=== PATIENT | male | born 1955 | race Caucasian/White ===

== ENCOUNTER 2020-05-17 22:29 | Inpatient (IN) | payer MEDICARE, OTHER ==
[~2020-05-17] VITALS: Ht 185.4 cm; Wt 103.9 kg
[2020-05-17] MEDS ORDERED: ACETAMINOPHEN ES 500 MG TABLET PO ONE (23:00)
[2020-05-17] MEDS ORDERED: ACETAMINOPHEN ES 500 MG TABLET ONE (23:04)
[2020-05-17] MEDS ORDERED: APIX5TAB4 PO (23:14)
[2020-05-17] MEDS ORDERED: ALBU18HF2 IH (23:14)
[2020-05-17] MEDS ORDERED: SERT25TA PO (23:14)
[2020-05-17] MEDS ORDERED: CLON0.5T4 PO (23:14)
[2020-05-17] MEDS ORDERED: OXYB10TA30 PO (23:14)
[2020-05-17] MEDS ORDERED: APIX5TAB PO (23:14)
[2020-05-17] MEDS ORDERED: CHLO25TA2 PO (23:14)
[2020-05-17] MEDS ORDERED: MULT-1196 PO (23:14)
[2020-05-17] MEDS ORDERED: FLUT1DIS27 IH (23:14)
[2020-05-17] MEDS ORDERED: COGENTIN PO (23:14)
[2020-05-17] MEDS ORDERED: FINA5TAB3 PO (23:14)
[2020-05-17] MEDS ORDERED: AMLO10TA7 PO (23:14)
[2020-05-17] MEDS ORDERED: ZIPR80CA2 PO (23:14)
[2020-05-17] MEDS ORDERED: PHEN-704 PO (23:14)
[2020-05-17] MEDS ORDERED: TAMS-3 PO (23:14)
[2020-05-17] MEDS ORDERED: ATOR20TA PO (23:14)
[2020-05-17] MEDS ORDERED: LISI10TA5 PO (23:14)
--- NOTE | 2020-05-17 23:14 | NUR ---
Pt. admitted to [facility] , under care of Dr. BOOTHE Belongs List completed. MRSA SWAB COLLECTED.
[2020-05-17] MEDS ORDERED: BLOOD SUGAR DIAGNOSTIC 1 EACH STRIP VI ONE (23:30)
[2020-05-17] MEDS ORDERED: MAG HYDROX/AL HYDROX/SIMETH 30 ML LIQUID UDC PO PRN (23:30)
[2020-05-17] MEDS ORDERED: MAGNESIUM HYDROXIDE 30 ML LIQUID UDC PO PRN (23:30)
[2020-05-17] MEDS ORDERED: ACETAMINOPHEN 325 MG TABLET PO PRN (23:30)
[2020-05-17 23:50] VITALS: BP 130/70
[2020-05-18] MEDS: TEMAZEPAM 7.5 MG CAPSULE PO PRN (00:27)
[2020-05-18] MEDS: LORAZEPAM 1 MG TABLET PO PRN (03:18)
[2020-05-18 07:30] VITALS: BP 118/60
[2020-05-18 08:19] LABS: CREATININE 1.1 mg/dL (0.6-1.3); POTASSIUM 2.9 mmol/L (3.5-5.1); TOTAL PROTEIN, SERUM 7.2 g/dL (6.4-8.2)
[2020-05-18] MEDS ORDERED: ZIPRASIDONE 80 MG CAPSULE PO SCH (09:00)
[2020-05-18] MEDS: SERTRALINE HCL 50 MG TABLET PO SCH (09:36)
[2020-05-18] MEDS: POTASSIUM CHLORIDE 20 MEQ TAB.PRT.SR PO SCH ×3 (09:36→12:21)
[2020-05-18] MEDS: LITHIUM CARBONATE 300 MG CAPSULE PO SCH ×2 (09:36→16:54)
[2020-05-18] MEDS: ZIPRASIDONE 20 MG CAPSULE PO SCH ×2 (10:07→20:45)
[2020-05-18] MEDS ORDERED: ALBUTEROL SULFATE 2.5 MG/3 ML NEBU NEB PRN (12:00)
--- NOTE | 2020-05-18 13:19 | NUR ---
BELINDA Initial Discharge Plan: Patient was residing at [facility] [address] [address]. This radio news writer spoke with patient's sister, Karol ([phone]) who stated that the patient has a new residence arranged by [facility] [address] [address]. Patient would like to be discharged to his new independent living. BELINDA will continue to work with patient, family, and MD to ensure a safe and proper discharge plan.
--- NOTE | 2020-05-18 13:19 | NUR ---
BELINDA Family Contact: SW spoke with patient's sister, Karol Cancino ([phone]) regarding patient's treatment and discharge planning.
--- NOTE | 2020-05-18 13:31 | NUR ---
Firearms Report: Machine Room Operator completed and submitted a [employer] firearms report for 5150 grave disability certification. A copy of report has been placed in patient chart.
--- NOTE | 2020-05-18 14:17 | NUR ---
potassium replaced orally, follow up lab tomorrow
[2020-05-18 16:00] VITALS: BP 112/67
[2020-05-18] MEDS: APIXABAN 5 MG TABLET PO SCH (16:58)
[2020-05-18] MEDS ORDERED: FLUTICASONE/SALMETEROL 100/50 1 INH DISK.W.DEV IH SCH (17:00)
--- NOTE | 2020-05-18 18:16 | NUR ---
patient still noted with bizzare behaviour, no combative, no aggressive behaviour noted, compliant with medications, kept safe during shift, denied suicidal thoughts.
[2020-05-18 20:14] VITALS: BP 118/65
[2020-05-18] MEDS: ATORVASTATIN 20 MG TABLET PO SCH (20:45)
[2020-05-18] MEDS: TAMSULOSIN HCL 0.4 MG CAP.SR.24H PO SCH (20:45)
--- NOTE | 2020-05-19 04:38 | NUR ---
Received patient in bed, med compliant, no behavioral issue, patient will remain in a psych facility for further evaluation and treatment. Patient compliant with treatment, good insight and good judgement.
[2020-05-19] MEDS: PANTOPRAZOLE SODIUM 40 MG TABLET.DR PO SCH (06:08)
[2020-05-19 07:52] LABS: CREATININE 0.9 mg/dL (0.6-1.3); POTASSIUM 2.9 mmol/L (3.5-5.1)
[2020-05-19] MEDS ORDERED: POTASSIUM CHLORIDE 20 MEQ POWDER PACKET PO ONE (08:45)
[2020-05-19] MEDS ORDERED: CHLORTHALIDONE 25 MG TABLET PO SCH (09:00)
[2020-05-19] MEDS: OXYBUTYNIN XL 5 MG TABSR PO SCH (09:27)
[2020-05-19] MEDS: LITHIUM CARBONATE 300 MG CAPSULE PO SCH ×2 (09:27→17:05)
[2020-05-19] MEDS: SERTRALINE HCL 50 MG TABLET PO SCH (09:28)
[2020-05-19] MEDS: MULTIVIT, IRON, MIN NO. 8, FA TABLET PO SCH (09:28)
[2020-05-19] MEDS: APIXABAN 5 MG TABLET PO SCH ×2 (09:28→17:06)
[2020-05-19] MEDS: LISINOPRIL 10 MG TABLET PO SCH (09:29)
[2020-05-19] MEDS: AMLODIPINE 10 MG TABLET PO SCH (09:29)
[2020-05-19] MEDS: ZIPRASIDONE 20 MG CAPSULE PO SCH ×2 (09:30→20:13)
[2020-05-19] MEDS: FINASTERIDE 5 MG TABLET PO SCH (09:30)
[2020-05-19] MEDS: FLUTICASONE/VILANTEROL 1 EACH BLST.W.DEV INH SCH (09:30)
--- NOTE | 2020-05-19 10:38 | NUR ---
Received patient in room. Patient AAO x 1, able to express needs but forgetful. NO acute distress noted. Vital signs stable. Patient noted being very paranoid, anxious and restless. Patient also noted getting undressed several times and walking naked on the hallway. Reoriented patient and patient assisted with closing several times. Patient is compliant with medication, cooperative with care. Participates in group therapy as well. Safety measures in place and will continue with care.
--- NOTE | 2020-05-19 10:45 | NUR ---
Patient in activity room doing group therapy. Patient noted getting undressed in front of other patients. Explained to patient needs to put back close on. Patient assisted getting dressed and decided to stay in group. Will continue with care.
[2020-05-19] MEDS: LORAZEPAM 1 MG TABLET PO PRN (12:04)
[2020-05-19 13:38] VITALS: BP 132/72
--- NOTE | 2020-05-19 14:12 | NUR ---
Patient in activity room with SW participating in group therapy.
[2020-05-19 16:00] VITALS: BP 89/59
--- NOTE | 2020-05-19 19:42 | NUR ---
Patient calm and in room at this time, compliant with meds. Patient AAO x 1-2 with forgetfulness noted. Compliant with care, No agitation noted. Participated in group therapy for most of the shift. Safety needs in place and will continue with care.
[2020-05-19] MEDS: TAMSULOSIN HCL 0.4 MG CAP.SR.24H PO SCH (20:12)
[2020-05-19] MEDS: ATORVASTATIN 20 MG TABLET PO SCH (20:13)
[2020-05-19 20:40] VITALS: BP 104/50
[2020-05-20] MEDS: PANTOPRAZOLE SODIUM 40 MG TABLET.DR PO SCH (06:17)
[2020-05-20 07:30] VITALS: BP 106/56
[2020-05-20] MEDS: LISINOPRIL 10 MG TABLET PO SCH (09:28)
[2020-05-20] MEDS: AMLODIPINE 10 MG TABLET PO SCH (09:28)
[2020-05-20] MEDS: MULTIVIT, IRON, MIN NO. 8, FA TABLET PO SCH (09:28)
[2020-05-20] MEDS: LITHIUM CARBONATE 300 MG CAPSULE PO SCH ×2 (09:28→16:34)
[2020-05-20] MEDS: APIXABAN 5 MG TABLET PO SCH ×2 (09:29→16:35)
[2020-05-20] MEDS: FINASTERIDE 5 MG TABLET PO SCH (09:29)
[2020-05-20] MEDS: OXYBUTYNIN XL 5 MG TABSR PO SCH (09:30)
[2020-05-20] MEDS: SERTRALINE HCL 50 MG TABLET PO SCH (09:30)
[2020-05-20] MEDS: ZIPRASIDONE 20 MG CAPSULE PO SCH ×2 (09:30→20:06)
[2020-05-20] MEDS: FLUTICASONE/VILANTEROL 1 EACH BLST.W.DEV INH SCH (09:30)
[2020-05-20 15:54] VITALS: BP 95/48
[2020-05-20 20:00] VITALS: BP 116/60
[2020-05-20] MEDS: TAMSULOSIN HCL 0.4 MG CAP.SR.24H PO SCH (20:06)
[2020-05-20] MEDS: LORAZEPAM 1 MG TABLET PO PRN (20:06)
[2020-05-20] MEDS: ATORVASTATIN 20 MG TABLET PO SCH (20:07)
--- NOTE | 2020-05-21 05:18 | NUR ---
Patient was anxious at the beginning of the shift and was medicated with a PRN med. Patient is still hearing multiple voices all at once and gets frustrated easily. During the night patient was up because he had soiled his bed. After cleaning up the patient he was able to go back to bed for awhile. Continuing to monitor for safety and anxiety. No distress at this time.
[2020-05-21] MEDS: PANTOPRAZOLE SODIUM 40 MG TABLET.DR PO SCH (06:06)
[2020-05-21] MEDS: LORAZEPAM 1 MG TABLET PO PRN (06:48)
[2020-05-21 07:30] VITALS: BP 114/57
[2020-05-21] MEDS: ZIPRASIDONE 20 MG CAPSULE PO SCH ×2 (08:21→20:06)
[2020-05-21] MEDS: OXYBUTYNIN XL 5 MG TABSR PO SCH (08:21)
[2020-05-21] MEDS: AMLODIPINE 10 MG TABLET PO SCH (08:22)
[2020-05-21] MEDS: LISINOPRIL 10 MG TABLET PO SCH (08:22)
[2020-05-21] MEDS: MULTIVIT, IRON, MIN NO. 8, FA TABLET PO SCH (08:23)
[2020-05-21] MEDS: FINASTERIDE 5 MG TABLET PO SCH (08:23)
[2020-05-21] MEDS: LITHIUM CARBONATE 300 MG CAPSULE PO SCH ×2 (08:23→16:55)
[2020-05-21] MEDS: SERTRALINE HCL 50 MG TABLET PO SCH (08:23)
[2020-05-21] MEDS: APIXABAN 5 MG TABLET PO SCH ×2 (08:23→16:56)
[2020-05-21 08:40] LABS: CREATININE 0.9 mg/dL (0.6-1.3); POTASSIUM 4.1 mmol/L (3.5-5.1)
[2020-05-21] MEDS: FLUTICASONE/VILANTEROL 1 EACH BLST.W.DEV INH SCH (09:00)
--- NOTE | 2020-05-21 10:58 | NUR ---
Patient is sitting quietly in the dining room. patient is guarded and withdrawn, not fully interacting with this creative writer during conversation. Patient just states "yes" or "no" to questions, and at times does not respond. patient is slow to respond and he appears that he is internally preoccupied and responding to internal stimuli. Patient is medication adherent, no adverse reaction noted. AM antihypertensive medication held due to BP of 114/57. patient is reporting no S/S of hypotension. he is encouraged to drink fluids as needed. patient instructed to inform staff if any s/s of hypotension occur. patient is able to ambulate independently.
[2020-05-21 16:00] VITALS: BP 113/67
--- NOTE | 2020-05-21 17:36 | NUR ---
Patient is visible on the unit and has more interaction with staff and peers. Patient has a bright affect, is hyperverbal and tangential in thought. Patient provided with diversional activities and encouraged to participate in therapeutic milieu (television, joining group). Patient is able to verbalize understanding of education.
[2020-05-21] MEDS: TAMSULOSIN HCL 0.4 MG CAP.SR.24H PO SCH (20:06)
[2020-05-21] MEDS: ATORVASTATIN 20 MG TABLET PO SCH (20:06)
[2020-05-21 20:33] VITALS: BP 119/64
[2020-05-21] MEDS: TEMAZEPAM 7.5 MG CAPSULE PO PRN (21:42)
[2020-05-22] MEDS: PANTOPRAZOLE SODIUM 40 MG TABLET.DR PO SCH (06:20)
--- NOTE | 2020-05-22 07:04 | NUR ---
Received Pt in the day room interacting with his peers. A+Ox2, presents with hyperverbal and rambling speech, flat affect, and tangential/disorganized thought process. Poor insight into reason for admission, has episodes of forgetfulness. Noted to be anxious and restless, Restoril 7.5mg administered with good effect. Denies SI/HI, CFS. Denies AH/VH this shift, but reported command AH last shift. Compliant with medications, no aggressive behaviors. VS stable, denies pain. Slept 7 hours. Shower given this AM.
[2020-05-22 07:30] VITALS: BP 152/82
[2020-05-22] MEDS: MULTIVIT, IRON, MIN NO. 8, FA TABLET PO SCH (08:40)
[2020-05-22] MEDS: SERTRALINE HCL 50 MG TABLET PO SCH (08:40)
[2020-05-22] MEDS: LITHIUM CARBONATE 300 MG CAPSULE PO SCH ×2 (08:40→17:29)
[2020-05-22] MEDS: AMLODIPINE 10 MG TABLET PO SCH (08:41)
[2020-05-22] MEDS: OXYBUTYNIN XL 5 MG TABSR PO SCH (08:41)
[2020-05-22] MEDS: LISINOPRIL 10 MG TABLET PO SCH (08:41)
[2020-05-22] MEDS: FINASTERIDE 5 MG TABLET PO SCH (08:43)
[2020-05-22] MEDS: APIXABAN 5 MG TABLET PO SCH ×2 (08:43→17:31)
[2020-05-22] MEDS: ZIPRASIDONE 20 MG CAPSULE PO SCH ×2 (08:43→20:04)
[2020-05-22] MEDS: FLUTICASONE/VILANTEROL 1 EACH BLST.W.DEV INH SCH (09:56)
[2020-05-22 15:30] VITALS: BP 113/58
--- NOTE | 2020-05-22 16:31 | NUR ---
Pt received sitting in chair in dinning room watching TV. Pt calm, cooperative, with flat affect, and compliant. No behavioral issues throughout shift, Pt able to be redirected, initiating interactions at times. AAOx2 and able to make needs known. Pt ambulates steadily with walker, participates in group and ate lunch in dining room with others. Pt denies SI/HI/AH/VH at this time and able to CFS. Will continue to monitor for safety.
[2020-05-22] MEDS: LORAZEPAM 1 MG TABLET PO PRN (19:49)
[2020-05-22] MEDS: TAMSULOSIN HCL 0.4 MG CAP.SR.24H PO SCH (20:03)
[2020-05-22] MEDS: ATORVASTATIN 20 MG TABLET PO SCH (20:03)
[2020-05-22 20:38] VITALS: BP 101/57
[2020-05-22] MEDS: TEMAZEPAM 7.5 MG CAPSULE PO PRN (21:04)
--- NOTE | 2020-05-23 06:03 | NUR ---
Pt anxious and restless on approach, Ativan 1mg administered at 1948 with minimal effect as Pt remained anxious. Pt c/o insomnia, Restoril 7.5mg given at 2103 with moderate effect. Pt increasingly confused and disoriented this shift, wandering the hallways into other patient's rooms, requiring frequent reorientation and redirection. Pt urinated on himself and in the hallway, but was not aware of his actions. ADLs provided. Episodes of bizarre behavior standing in the hallway with his eyes closed appearing asleep, but states he is "meditating." Appears internally preoccupied. VS stable, denies pain.
[2020-05-23] MEDS: PANTOPRAZOLE SODIUM 40 MG TABLET.DR PO SCH (06:28)
[2020-05-23 07:30] VITALS: BP 117/61
--- NOTE | 2020-05-23 08:14 | NUR ---
FAMILY CONTACT: SW contacted patient's sister, Karol Cancino ([phone]) and left a voicemail to coordinate pts discharge on this present day.
--- NOTE | 2020-05-23 08:16 | NUR ---
BELINDA COORDINATION OF CARE: BELINDA contacted pts case maker from [facility] ([phone]) and left a voicemail for call back to discuss pts discharge on this present day.
--- NOTE | 2020-05-23 08:20 | NUR ---
SW COORDINATION OF CARE: SW contacted [facility] [address], [place] [address] ([phone]) and spoke with David, weblogic administrator who stated that facility is expecting pt on Saturday05/25/20 at 10:00am and stated that pts case management associate is arranging pts move. She states that facility is not ready to receive pt on this day as they do not have a bed for pt.
[2020-05-23] MEDS: MULTIVIT, IRON, MIN NO. 8, FA TABLET PO SCH (08:31)
[2020-05-23] MEDS: LISINOPRIL 10 MG TABLET PO SCH (08:32)
[2020-05-23] MEDS: SERTRALINE HCL 50 MG TABLET PO SCH (08:33)
[2020-05-23] MEDS: AMLODIPINE 10 MG TABLET PO SCH (08:33)
[2020-05-23] MEDS: LITHIUM CARBONATE 300 MG CAPSULE PO SCH ×2 (08:33→17:12)
[2020-05-23] MEDS: FLUTICASONE/VILANTEROL 1 EACH BLST.W.DEV INH SCH (08:35)
[2020-05-23] MEDS: OXYBUTYNIN XL 5 MG TABSR PO SCH (08:35)
[2020-05-23] MEDS: ZIPRASIDONE 20 MG CAPSULE PO SCH (08:36)
[2020-05-23] MEDS: FINASTERIDE 5 MG TABLET PO SCH (08:36)
[2020-05-23] MEDS: APIXABAN 5 MG TABLET PO SCH ×2 (08:37→17:14)
--- NOTE | 2020-05-23 09:49 | NUR ---
BELINDA COORDINATION OF CARE: BELINDA received a call from pts caseworker intake from [facility] ([phone]) confirming pts discharge for Saturday05/25/20 at 10am. She states that everything will be ready for pt to transfer on Saturday. Per Shelley she is unable to provide transportation and states that pt will be needing transportation to the facility.
--- NOTE | 2020-05-23 12:30 | NUR ---
BELINDA COORDINATION OF CARE: SW contacted pts shoe parts caser from [facility], Shelley ([phone]) to discuss pts current behaviors. Per Shelley, she feels pt would benefit more from a SNF than Independent Living, she states that based on the nurses report pt is not appropriate for independent living placement. SW stated she would refer pt to a SNF and provide her with an update tomorrow.
--- NOTE | 2020-05-23 12:40 | NUR ---
SNF REFERRAL: faxed [facility] referral to [facility] Address: [address], [place] [address] for review.
--- NOTE | 2020-05-23 13:59 | NUR ---
SNF CONTACT: SW received a call from Georgina entry level project coordinator at [facility] Address: [place] [address] stating pt has been accepted to the facility.
--- NOTE | 2020-05-23 14:31 | NUR ---
FAMILY CONTACT: SW received a call from patient's sister, Karol Cancino ([phone]) requesting updated discharge information. SW informed her that pt will be discharged to [facility] once stable due to pt not being appropriate for independent living. SW provided sister with an update on pts behavior. Sister agreed with SNF placement.
--- NOTE | 2020-05-23 14:41 | NUR ---
BELINDA COORDINATION OF CARE: BELINDA received a call from pts correctional counselor/case manager from [facility], Shelley ([phone]) requesting updated information. BELINDA informed her pt was accepted to [facility] and stated that pts discharge has been cancelled for Saturday as pt is not stable. Shelley expressed concern with pts petroleum terminal plant operator placement and requested information on pts length of stay at the SNF. BELINDA provided Shelley with [facility]'s admissions phone number to discuss pts insurance coverage.
[2020-05-23 15:36] VITALS: BP 111/70
--- NOTE | 2020-05-23 18:18 | NUR ---
patient is confused and disoriented pacing in hallway and get in to other patient's room , requested re-direction at all time.compliant with all medication.
[2020-05-23 20:00] VITALS: BP 104/51
[2020-05-23] MEDS: TAMSULOSIN HCL 0.4 MG CAP.SR.24H PO SCH (21:15)
[2020-05-23] MEDS: ZIPRASIDONE 80 MG CAPSULE PO SCH (21:16)
[2020-05-23] MEDS: ATORVASTATIN 20 MG TABLET PO SCH (21:16)
[2020-05-24] MEDS: PANTOPRAZOLE SODIUM 40 MG TABLET.DR PO SCH (07:00)
[2020-05-24 07:30] VITALS: BP 124/65
[2020-05-24] MEDS: FLUTICASONE/VILANTEROL 1 EACH BLST.W.DEV INH SCH (08:23)
[2020-05-24] MEDS: OXYBUTYNIN XL 5 MG TABSR PO SCH (08:24)
[2020-05-24] MEDS: LISINOPRIL 10 MG TABLET PO SCH (08:24)
[2020-05-24] MEDS: AMLODIPINE 10 MG TABLET PO SCH (08:24)
[2020-05-24] MEDS: FINASTERIDE 5 MG TABLET PO SCH (08:24)
[2020-05-24] MEDS: MULTIVIT, IRON, MIN NO. 8, FA TABLET PO SCH (08:24)
[2020-05-24] MEDS: SERTRALINE HCL 50 MG TABLET PO SCH (08:26)
[2020-05-24] MEDS: LITHIUM CARBONATE 300 MG CAPSULE PO SCH ×2 (08:27→16:15)
[2020-05-24] MEDS: APIXABAN 5 MG TABLET PO SCH ×2 (08:28→16:17)
[2020-05-24] MEDS: ZIPRASIDONE 80 MG CAPSULE PO SCH ×2 (08:30→20:42)
--- NOTE | 2020-05-24 13:22 | NUR ---
patient remains confused and disoriented wondering around in the unit get into other peers room ,compliant with all medication .
[2020-05-24 17:10] VITALS: BP 99/89
[2020-05-24 20:01] VITALS: BP 115/43
[2020-05-24] MEDS: ATORVASTATIN 20 MG TABLET PO SCH (20:42)
[2020-05-24] MEDS: TAMSULOSIN HCL 0.4 MG CAP.SR.24H PO SCH (20:42)
[2020-05-24] MEDS: TEMAZEPAM 7.5 MG CAPSULE PO PRN (20:47)
[2020-05-25] MEDS: PANTOPRAZOLE SODIUM 40 MG TABLET.DR PO SCH (06:05)
[2020-05-25 06:38] LABS: BASOPHILS % (AUTO) 0.5 % (0.0-2.0); EOSINOPHILS # (AUTO) 0.3 K/uL (0.0-0.7); EOSINOPHILS % (AUTO) 3.8 % (0.0-7.0); HEMATOCRIT 36.5 % (36.7-47.1); HEMOGLOBIN 12.5 g/dL (12.5-16.3); LYMPHOCYTES # (AUTO) 1.4 K/uL (20.0-40.0); LYMPHOCYTES % (AUTO) 20.6 % (20.5-51.5); MEAN CORPUSCULAR HEMOGLOBIN 30.8 uug (23.8-33.4); MEAN CORPUSCULAR HGB CONC 34 g/dL (32.5-36.3); MONOCYTES # (AUTO) 0.6 K/uL (2.0-10.0); MONOCYTES % (AUTO) 8.2 % (0.0-11.0); NEUTROPHILS # (AUTO) 4.5 K/uL (1.8-8.9); NEUTROPHILS % (AUTO) 66.9 % (38.5-71.5); PLATELET COUNT (AUTO) 183 K/uL (152-348); RED BLOOD CELL COUNT(AUTO) 4.05 MIL/uL (4.06-5.63); WHITE BLOOD COUNT (AUTO) 6.8 K/uL (3.6-10.2)
[2020-05-25 06:50] LABS: MAGNESIUM 2.1 mg/dL (1.8-2.4); PHOSPHOROUS 2.9 mg/dL (2.5-4.9); POTASSIUM 3.9 mmol/L (3.5-5.1)
[2020-05-25 07:30] VITALS: BP 117/49
[2020-05-25] MEDS: OXYBUTYNIN XL 5 MG TABSR PO SCH (08:01)
[2020-05-25] MEDS: SERTRALINE HCL 50 MG TABLET PO SCH (08:01)
[2020-05-25] MEDS: ZIPRASIDONE 80 MG CAPSULE PO SCH ×2 (08:01→19:57)
[2020-05-25] MEDS: MULTIVIT, IRON, MIN NO. 8, FA TABLET PO SCH (08:01)
[2020-05-25] MEDS: AMLODIPINE 10 MG TABLET PO SCH (08:02)
[2020-05-25] MEDS: LITHIUM CARBONATE 300 MG CAPSULE PO SCH (08:02)
[2020-05-25] MEDS: FINASTERIDE 5 MG TABLET PO SCH (08:02)
[2020-05-25] MEDS: LISINOPRIL 10 MG TABLET PO SCH (08:02)
[2020-05-25] MEDS: FLUTICASONE/VILANTEROL 1 EACH BLST.W.DEV INH SCH (08:05)
[2020-05-25] MEDS: APIXABAN 5 MG TABLET PO SCH ×2 (08:10→16:15)
--- NOTE | 2020-05-25 14:04 | NUR ---
PATIENT IS COMPLIANT WITH CARE AND MEDS, NO AGGRESSIVE OR COMBATIVE BEHAVIOR NOTED, SITTING IN THE DINNING ROOM, PARTICIPATING WITH ACTIVITIES, DENIES SUICIDAL, AND HOMICIDAL IDEATIONS,
[2020-05-25 16:04] VITALS: BP 91/45
[2020-05-25] MEDS: TAMSULOSIN HCL 0.4 MG CAP.SR.24H PO SCH (19:57)
[2020-05-25] MEDS: ATORVASTATIN 20 MG TABLET PO SCH (19:58)
[2020-05-25 20:08] VITALS: BP 115/54
[2020-05-25] MEDS: TEMAZEPAM 7.5 MG CAPSULE PO PRN (21:57)
[2020-05-26] MEDS: PANTOPRAZOLE SODIUM 40 MG TABLET.DR PO SCH (06:41)
[2020-05-26 07:30] VITALS: BP 99/45
[2020-05-26] MEDS: MULTIVIT, IRON, MIN NO. 8, FA TABLET PO SCH (08:38)
[2020-05-26] MEDS: SERTRALINE HCL 50 MG TABLET PO SCH (08:38)
[2020-05-26] MEDS: AMLODIPINE 10 MG TABLET PO SCH (08:39)
[2020-05-26] MEDS: LISINOPRIL 10 MG TABLET PO SCH (08:44)
[2020-05-26] MEDS: APIXABAN 5 MG TABLET PO SCH ×2 (08:45→18:17)
[2020-05-26] MEDS: ZIPRASIDONE 80 MG CAPSULE PO SCH ×2 (08:46→21:14)
[2020-05-26] MEDS: OXYBUTYNIN XL 5 MG TABSR PO SCH (08:48)
[2020-05-26] MEDS: FLUTICASONE/VILANTEROL 1 EACH BLST.W.DEV INH SCH (08:54)
[2020-05-26] MEDS: FINASTERIDE 5 MG TABLET PO SCH (09:00)
--- NOTE | 2020-05-26 11:07 | NUR ---
BELINDA COORDINATION OF CARE: BELINDA contacted pts caseworker intake from [facility], Shelley ([phone]) to inform her that pt will be discharged tomorrow Saturday05/27/20. Shelley agrees with discharge plan.
--- NOTE | 2020-05-26 11:08 | NUR ---
SNF CONTACT: BELINDA contacted Georgina, college admissions counselor at [facility] Address: [place] [address] to inform her pt will be discharged tomorrow Saturday05/27/20, Georgina arranged transportation for 11:00am.
--- NOTE | 2020-05-26 11:09 | NUR ---
FAMILY CONTACT: SW contacted patient's sister, Karol Cancino ([phone]) and informed her of pts discharged tomorrow Saturday05/27/20 at 11:00am to [facility] via voicemail.
--- NOTE | 2020-05-26 15:33 | NUR ---
DISCHARGE NOTE FOR Saturday05/27/20: Pt will be discharged at 11:00am via facility transport to [facility] ([facility]) located at [address] [place] [id number] . Patient's sister, Karol Cancino ([phone]) has been notified. Pts mood is euthymic with congruent affect. Pt denies visual/auditory hallucinations and denies suicidal/homicidal ideation. Pt is alert and oriented x4 and appears appropriately dressed and groomed. Pt is ambulatory and uses a walker for unsteady gait. Pt will be under the care of Psychiatrist: Dr. Helena Phillips [address], [place] [address] [phone] and Nut Sorter: Dr. Rogers located at [address] [place] [address] [address], [place] [address]; . The multidisciplinary exit care form was done, printed, signed, and given to the patient.
[2020-05-26 16:00] VITALS: BP 109/52
[2020-05-26] MEDS: ATORVASTATIN 20 MG TABLET PO SCH (21:14)
[2020-05-26] MEDS: TAMSULOSIN HCL 0.4 MG CAP.SR.24H PO SCH (21:14)
[2020-05-26 21:46] VITALS: BP 113/57
[2020-05-26] MEDS: TEMAZEPAM 7.5 MG CAPSULE PO PRN (22:19)
[2020-05-27] MEDS: PANTOPRAZOLE SODIUM 40 MG TABLET.DR PO SCH (07:06)
[2020-05-27 07:30] VITALS: BP 120/61
[2020-05-27] MEDS: OXYBUTYNIN XL 5 MG TABSR PO SCH (08:49)
[2020-05-27] MEDS: AMLODIPINE 10 MG TABLET PO SCH (08:49)
[2020-05-27] MEDS: ZIPRASIDONE 80 MG CAPSULE PO SCH (08:49)
[2020-05-27 08:50] VITALS: BP 120/61
[2020-05-27] MEDS: MULTIVIT, IRON, MIN NO. 8, FA TABLET PO SCH (08:50)
[2020-05-27] MEDS: SERTRALINE HCL 50 MG TABLET PO SCH (08:50)
[2020-05-27] MEDS: LISINOPRIL 10 MG TABLET PO SCH (08:50)
[2020-05-27] MEDS: FINASTERIDE 5 MG TABLET PO SCH (08:51)
[2020-05-27] MEDS: APIXABAN 5 MG TABLET PO SCH (08:54)
[2020-05-27] MEDS: FLUTICASONE/VILANTEROL 1 EACH BLST.W.DEV INH SCH (08:56)
--- NOTE | 2020-05-27 10:23 | NUR ---
Gps/Ventilating Engineer- Called [facility], report given to Nurse Ila, informed of garbage pick up man time. Patient was well informed of his discharged,pt. in good spirit, no new complaints noted. Per notes from Databases Computer Consultant Ivon, patient's sister Karol was informed of her discharge .
== END 2020-05-27 11:45 | DRG 885 ==
LOC: ER 22:33 → GPS 23:15
PROVIDERS: ADMIT Psychiatry & Neurology Psychiatry; ATTEND Nurse Practitioner Acute Care
DX: F25.9 Schizoaffective disorder, unspecified (principal); I11.0 Hypertensive heart disease with heart failure; E87.1 Hypo-osmolality and hyponatremia; I50.32 Chronic diastolic (congestive) heart failure; E78.5 Hyperlipidemia, unspecified; Z95.0 Presence of cardiac pacemaker; Z79.01 Long term (current) use of anticoagulants; E87.6 Hypokalemia; I10 Essential (primary) hypertension; J44.9 Chronic obstructive pulmonary disease, unspecified; I25.10 Atherosclerotic heart disease of native coronary artery without angina pectoris; I48.0 Paroxysmal atrial fibrillation; N40.0 Benign prostatic hyperplasia without lower urinary tract symptoms; F29 Unspecified psychosis not due to a substance or known physiological condition; F41.9 Anxiety disorder, unspecified
CPT/HCPCS: 36415; 70030-TC; 71045; 83735; 84100; 85025; 93005; A4663; A9150